=== PATIENT | female | born 1960 | race Caucasian/White ===

== ENCOUNTER 2017-12-07 07:30 | Inpatient (IN) ==
[~2017-12-07 07:30] MED LIST: ACETAMINOPHEN 500 MG TABLET PO ONE; FAMOTIDINE PB 20 MG/50 ML BAG IV ONE; LIDOCAINE 1% (10mg/ml) 2mL INJ PF SDV ID ONE; METOCLOPRAMIDE 10mg/2ml INJECTION IVP ONE; ONDANSETRON 4 MG/2 ML INJECTION IVP ONE; TRANEXAMIC ACID 1,000 MG in NS 100 ML IV ONE
[2017-12-07] MEDS ORDERED: EPINEPHrine PF 0.25 MG, BUPIVACAINE 0.25% PF 30 ML, KETOROLAC INJ 60 MG in NS 30 ML OPSITE ONE (08:00)
[2017-12-07 09:37] VITALS: BMI 38.9
[2017-12-07] MEDS ORDERED: CEFAZOLIN 1 G INJECTION IVP ONE (09:42)
[2017-12-07] MEDS ORDERED: SALINE FLUSH 10ml SYRINGE IV PRN (10:01)
[2017-12-07] MEDS: LR 1,000 ML IV SCH ×2 (10:30→12:36)
[2017-12-07] MEDS: NOZIN NASAL SWAB NAS SCH ×5 (10:36→21:01)
[2017-12-07] MEDS ORDERED: VANCOMYCIN 1,000 MG INJECTION ONE (10:50)
--- NOTE | 2017-12-07 10:55 | Anesthesia Preoperative Report ---
Anesthesia Preoperative Record - Date and Time Date: 12/07/17 Preoperative Diagnosis: LT TKA M17.12 Proposed Procedure: Left TKA NPO Since Date: 12/06/17 NPO Since Time: 23:15 Allergies/Adverse Reactions: Allergies Allergy/AdvReac Type Severity Reaction Status Date / Time codeine AdvReac Intermediate Mental Verified 12/07/17 09:57 Changes - Vital Signs Vital Signs: Temperature 98.4 F 12/07/17 09:35 Pulse Rate 67 12/07/17 09:35 Respiratory Rate 16 12/07/17 09:35 Blood Pressure 182/86 H 12/07/17 09:35 Pulse Oximetry 97 12/07/17 09:35 Height and Weight: Height 5 ft 6 in Weight 109.3 kg Body Mass Index 38.9 - Medications Inpatient Medications: Current Medications Epinephrine HCl 0.25 mg/Bupivacaine HCl 30 ml/Ketorolac Tromethamine 60 mg/ Sodium Chloride 62.25 mls @ 1 mls/hr OPSITE INTRAOP ONE PRN Reason: Protocol Stop: 12/09/17 22:14 Lactated Ringer's (Lactated Ringers) 1,000 mls @ 50 mls/hr IV .Q20H SABRINA Last Admin: 12/07/17 10:30 Dose: 50 mls/hr Sodium Chloride (Iv Flush) 10 - 80 ml IV PRN PRN PRN Reason: [place] Home Medications: Home Medications Medication Instructions Recorded Confirmed Type Cymbalta (duloxetine) 30 mg 60 mg PO DAILY 10/12/17 12/07/17 History capsule,delayed release Aspirin *EC* [Ecotrin] 1 - 2 tab PO DAILY PRN 11/30/17 12/07/17 History Gabapentin [Neurontin] 300 mg PO HS 11/30/17 12/07/17 History Metformin HCl [Metformin HCl ER] 500 mg PO BID 11/30/17 12/07/17 History Omeprazole Magnesium [Prilosec Otc] 20 mg PO DAILY 11/30/17 12/07/17 History Is Patient on Beta Chapito?: No - Medical History Respiratory: DENIES: Asthma, Bronchitis, Chronic Obstructive Pulmonary Disease (COPD), Dyspnea, Orthopnea, Pulmonary Embolism, Pneumonia, Upper Respiratory Infection, Pulmonary Edema, Sleep Apnea, Tuberculosis, Other Cardiovascular: DENIES: Abnormal EKG, Angina, Arrhythmia, Congestive Heart Failure, Coronary Artery Disease, Heart Murmur, Hypertension, Hypotension, High Cholesterol, Myocardial Infarction, Rheumatic Fever, Valvular Heart Disease, Other Gastrointestional: Reports: Gastroesophageal Reflux Disease (controlled with med ) DENIES: Obstructive Bowel, Hepatitis, Cirrhosis, Nausea or Vomiting Present, Gastrointestinal Bleeding, Hiatal Hernia, Ulcer, Morbid Obesity, Other Neuro/Musculoskeletal: Reports: Depression Denies: Back Problems, Cerebrovascular Accident, Headaches, Loss of Consciousness, Muscle Weakness, Neuromuscular Disorder, Paralysis, Paresthesia, Syncope, Seizures, Other Renal/Endocrine: Reports: Diabetes Mellitus Type 2 ("borderline"), Other (h/o hyperglycemia per h&p) DENIES: Diabetes Mellitus Type 1, Renal Failure, Dialysis, Thyroid Disease, Weight Loss, Weight Gain Other History: Reports: Cancer (cervical CA-LEEP procedure) DENIES: Anesthesia Reactions, Now, Blood Transfusions, Chemotherapy , Hemophilia, Malignant Hyperthermia, Sickle Cell Disease, Other - Surgical History GI Surgery/Treatments: Reports: Cholecystectomy Musculoskeletal Surgery/Tx: Reports: Orthopedic Surgery (right hip/femur fx w/ screws/plate ), Shoulder Arthroscopy (Rt RCR) Reproductive Surgery/Treatment: Reports: Cervical Procedure (LEEP), Tubal Ligation, Other (cervical LEEP) Anesthesia Reactions: None Hx Family Anesthesia Reaction: No History of Motion Sickness: No - Social History Smoking Status: Former smoker Hx Chewing Tobacco Use: No Second Hand Exposure: No Substance Use Type: does not use Alcohol Intake: current Alcohol Intake Frequency: holidays/special occasions only - Pertinent Findings Laboratory: CBC and BMP 12/07/17 09:55 BMP 12/07/17 09:55 Sodium 148 H Potassium 4.4 Chloride 107 Carbon Dioxide 27 BUN 18.0 H Creatinine 0.8 Glucose 113 H Calcium 9.9 EKG: Sinus Rhythm - Physical Exam Respiratory Exam: Present: lungs clear, bilateral breath sounds equal Cardiovascular Exam: Present: regular rate and rhythm, no murmur - Airway Assessment Mallampati Score: II TMD: 3 Fingerbreadths Neck Extension: good Overall Assessment: no airway concerns - ASA ASA Score: 2 - Plan Anesthesia: Neuroaxial Regional/Trunk Block: Spinal Peripheral Nerve Block: Saphenous-Left, Other (IPACK) - Discussion Discussion: Discussed risks/options/alternatives of anesthesia and questions answered. Patient consents. Nursing pain assessment noted. Present for Discussion: family member Attestation Statement: Prior to the delivery of any anesthetic medication, I examined the patient, developed the plan, obtained the patient's consent and discussed the risk and benefits of the procedure with the patient/guardian. - Additional Information Seen by Anesthesia: Yes
[2017-12-07] MEDS ORDERED: BUPIVACAINE 0.75%/DEXTROSE 8.5% SPINAL 2 ML AMPULE IJ ONE (11:14)
[2017-12-07] MEDS ORDERED: MIDAZOLAM 2mg/2ml INJECTION ONE (11:14)
[2017-12-07] MEDS ORDERED: LIDOCAINE 1% (10mg/ml) 30ml SDV INJ ONE (11:14)
[2017-12-07] MEDS ORDERED: FentaNYL 250 MCG/5 ML INJECTION ONE (11:14)
[2017-12-07] MEDS ORDERED: ANESTHESIA MIXTURE 50 ML IV ONE (11:15)
[2017-12-07] MEDS ORDERED: ROPIVACAINE 0.5% (5mg/ml) 30ml INJ ONE (11:35)
[2017-12-07] MEDS ORDERED: PROPOFOL 20 ML ONE (11:40)
[2017-12-07] MEDS ORDERED: VANCOMYCIN 1,000 MG INJECTION IAR ONE (11:51)
[2017-12-07] MEDS ORDERED: SALINE FLUSH 10ml SYRINGE ONE (11:54)
--- OUTSIDE RECORDS SUMMARY | 2017-12-07 11:54 | External Medical Summary | Summary of Care ---
:1960 Author Name Roosevelt Saunders D.O. Address [address] [place], [place] [id number] Care Team Providers Name Role Phone Roosevelt Saunders D.O. Unavailable Unavailable Frandy Bloom M.D. Unavailable Unavailable Frandy Bloom Unavailable Unavailable Unavailable Unavailable Unavailable Functional Status Functional Status Health Issues Name Dates Details Functional status health issues are not documented Status: Cognitive Status Health Issues Name Dates Details Cognitive status health issues are not documented Status: Problems Name Dates Details Neuropathy (355.9, G62.9) Status: Active Obesity (278.00, E66.9) Status: Active Constipation (564.00, K59.00) Status: Active Pain of right hip joint (719.45, M25.551) Status: Active Acute pain of left shoulder (719.41, M25.512) Status: Active Former tobacco use (V15.82, Z87.891) Status: Active Rotator cuff tendinitis, left (726.10, M75.82) Status: Active Cancer of cervix (180.9, C53.9) Status: Active Fatigue (780.79, R53.83) Status: Active Chronic pain of left knee (719.46, M25.562) Status: Active Hypercholesterolemia (272.0, E78.00) Status: Active Primary osteoarthritis of both knees (715.16, M17.0) Status: Active Primary osteoarthritis of left knee (715.16, M17.12) Status: Active Depression (311, F32.9) Status: Active Hyperglycemia (790.29, R73.9) Status: Active Hypertension (401.9, I10) Status: Active Restless leg syndrome (333.94, G25.81) Status: Active Injury of left foot, initial encounter (959.7, S99.922A) Status: Active Left foot pain (729.5, M79.672) Status: Active Contusion of left foot, initial encounter (924.20, S90.32XA) Status: Active Medications Name Dates Details Gabapentin 100 MG Oral Capsule TAKE 3 CAPSULES DAILY PRN. Quantity: 120 Refills: 6 Frandy Bloom M.D. Start : 19-Dec-2015 Active Cyclobenzaprine HCl - 10 MG Oral Tablet TAKE 1 TABLET 3 TIMES DAILY NEEDED. Quantity: 1 Refills: 2 Frandy Bloom M.D. Start : 14-Sep-2017 Active 30 Tablet Bottle DULoxetine HCl - 30 MG Oral Capsule Delayed Release Particles - TAKE one CAPSULE BY MOUTH EVERY DAY for a week then take two a day in am Quantity: 60 Refills: 11 Frandy Bloom M.D. Start : 14-Sep-2017 Active MetFORMIN HCl ER 500 MG Oral Tablet Extended Release 24 Hour one tablet twice a day Quantity: 60 Refills: 11 Frandy Bloom M.D. Start : 15-Oct-2017 Active Allergies and Adverse Reactions Name Dates Details Codeine Derivatives (Allergy) Status: Active Past Medical History Name Dates Details History of acute bronchitis (V12.69, Z87.09) Status: Resolved History of acute sinusitis (V12.69, Z87.09) Status: Resolved History of Ankle joint pain (719.47, M25.579) Status: Resolved History of Contusion of left foot, initial encounter (924.20, S90.32XA) Status: Resolved History of Foot pain (729.5, M79.673) Status: Resolved History of Foot pain, bilateral (729.5, M79.671) Status: Resolved History of Joint Pain In The Left Knee Status: Resolved Procedures Procedure Dates Details HEMOGLOBIN A1C 3507 Date: 15-Oct-2017 Comprehensive Metabolic Panel 1212 Date: 15-Oct-2017 History of Femur Repair Completed History of Shoulder Surgery Completed History of Cholecystectomy Laparoscopic Completed Immunization Name Dates Details Influenza on: 01-May-2010 Diphtheria-Tetanus Toxoids 6.7-5 LFU/0.5ML INJ on: 24-Oct-2013 Fluzone Quadrivalent Intramuscular Suspension on: 08-Aug-2015 Influenza (Nasal) on: 08-Jun-2016 Lot #: [id number] Fluzone Quadrivalent Intramuscular Suspension on: 16-Apr-2017 Lot #: [id number] Family History Grandfather Name Dates Details Family history of Diabetes Mellitus (V18.0) Status: Active Social History Name Dates Details - Status: Smoking Status Name Dates Details Current every day smoker Vital Signs Date Test Result Details [id number] BP Systolic 136 mm[Hg] Status: BP Diastolic 78 mm[Hg] Status: Height 66 in Status: Weight 248.6 lb Status: Body Mass Index Calculated 40.13 kg/m2 Status: Body Surface Area Calculated 2.19 m2 Status: Temperature 97.9 f Status: Heart Rate 83 /min Status: Respiration Rate 18 /min Status: O2 SAT 98 % Status: [id number] BP Systolic 132 mm[Hg] Status: BP Diastolic 86 mm[Hg] Status: Height 67 in Status: Weight 242 lb Status: Body Mass Index Calculated 37.9 kg/m2 Status: Body Surface Area Calculated 2.19 m2 Status: Temperature 98.6 f Status: Heart Rate 86 /min Status: Respiration Rate 18 /min Status: O2 SAT 98 % Status: Results Date Description Value Details [id number] Urinalysis, reflex to Micro and Comments: Testing performed by [facility], [address] [place] [address] Testing performed by [facility], [address] [place] [address] Culture ([facility]) 8016 pH 6.0 Range: 5.0-7.5 SP GRAVITY 1.025 Range: 1.010-1.030 APPEARANCE Clear Range: Clear COLOR Yellow Range: Straw-Yellow PROTEIN Negative mg/dL Range: Negative-Trace GLUCOSE Negative mg/dL Range: Negative KETONES Negative mg/dL Range: Negative BILIRUBIN Negative Range: Negative BLOOD Negative Range: Negative UROBIL 0.2 EU/dL Range: 0.2-1.0 NITRITE Negative Range: Negative LEUKOCYTES Negative Range: Negative [id number] ECG/ EKG Preop Electro CardioGram [facility] Test Date: [id number] Name: CISCO NAVA Department: Room: Gender: Female Science Manager: VRDOB: 1960 Requested By: Order Number: Reading MD: Bang Hanson MD MeasurementsIntervals Alvarado Rate: 76 P: 69PR: 168 QRS: -37QRSD: 122 T: 47QT: 390 QTc: 439 Interpretive StatementsSINUS RHYTHMMARKED LEFT AXIS DEVIATIONMODERATE INTRAVENTRICULAR CONDUCTION DELAYMODERATE VOLTAGE CRITERIA FOR LVH, CONSIDER NORMAL VARIANTReviewed by Electronically Signed On 11-24-2017 11:24:30 CDT by Bang Hanson MD [id number] Complete Blood Count ( CBC) w/ Auto Diff 7390 WBC Count 9.7 10*3/uL Range: 4.5-11.0 RBC Count 4.83 10*6/uL Range: 3.60-5.00 Hemoglobin 13.5 g/dL Range: 12.0-16.0 Hematocrit 42.2 % Range: 36.0-48.0 MCV 87.4 fL Range: 80.0-99.0 MCH 28.0 pg Range: 27.3-32.5 MCHC 32.0 % Range: 32.0-36.0 RDW-SD 44.7 fL Range: 36.4-46.3 RDW-CV 13.9 % Range: 11.0-15.0 Platelets 246 10*3/uL Range: 150-400 MPV 10.6 fL Range: 6.0-11.0 Neutrophil % 63.5 % Range: 37.0-80.0 Lymphocyte % 25.6 % Range: 13.0-50.0 Monocyte % 5.5 % Range: 0.0-12.0 Eosinophil % 4.2 % Range: 0.0-7.0 Basophil % 0.7 % Range: 0.0-3.0 Immature Granulocyte % 0.5 % Range: 0.0-1.0 Nucleated RBC % 0.0 % Range: 0.0-1.0 Neutrophil 6.14 10*3/uL Range: 2.00-6.90 Lymphocyte 2.48 10*3/uL Range: 0.60-3.40 Monocyte 0.53 10*3/uL Range: 0.00-0.90 Eosinophil 0.41 10*3/uL Range: 0.00-0.70 Basophil 0.07 10*3/uL Range: 0.00-0.20 Immature Granulocyte 0.05 10*3/uL Range: 0.00-0.10 Nucleated RBC 0.00 10*3/uL Range: 0.00-0.10 [id number] Comprehensive Metabolic Panel 1212 Comments: DOS 12/07/[address] SAY REYNOSO SODIUM 140 mmol/L Range: 133-144 POTASSIUM 3.4 mmol/L (Below low Range: 3.5-5.1 threshold) CHLORIDE 104 mmol/L Range: 98-110 CARBON DIOXIDE 26.7 mmol/L Range: 23.0-33.0 ANION GAP 9 mmol/L Range: 6-16 BUN 22 mg/dL (Above high Range: 7-18 threshold) CREATININE, SERUM 0.99 mg/dL Range: 0.55-1.02 BUN:CREATININE RATIO 22 EST GFR, >60 ml/min Range: >60 EST GFR, NON-AFR ANGOLAN 58 ml/min (Below low Range: >60 threshold) Comments: EST GFR is reported in ml/min per 1.73 m2 of body surface area. ----- GLUCOSE 195 mg/dL (Above high Range: 70-100 threshold) ALK PHOSPHATASE 87 U/L Range: 46-116 TOTAL BILIRUBIN 0.40 mg/dL Range: 0.20-1.00 AST 21 U/L Range: 8-35 ALT 37 U/L Range: 14-59 ALBUMIN 3.5 g/dL Range: 3.4-5.0 TOTAL PROTEIN 7.8 g/dL Range: 6.4-8.2 A/G RATIO 0.8 {units} (Below low Range: 1.0-1.8 threshold) CALCIUM 9.1 mg/dL Range: 8.5-10.1 [id number] XRay CHEST-PA & LAT Comments: Exam Date: 11/24/2017 10: 32Dictation Date: 11/24/2017 12:01 [facility] & [facility] Radiologic ReportCISCO [id number] (X-RAY)PATIENT OF DR. BLOOM BD: 1960 SECONDARY 11/24/17 X CHEST PA & LAT INDICATION: Z01.818: ENCOUNTER FOR OTHER PREPROCEDURAL EXAMINATIONCOMPARISON: NoneCHEST 2-VIEWS UPRIGHT (PA & LAT): The heart size is normal. The pulmonary vasculature is notengorged. The lungs are clear. No pleural effusion. No pneumonia, interstitial edema, orfailure.IMPRESSION: Negative chest. D/T Read: 11/24/2017 12:01Read By: WHIT ALCOCER MD D/T Signed: 11/24/2017 12:01Electronically Signed By: WHIT ALCOCER MD [id number] XRay FOOT-Left Comments: Exam Date: 12/03/2017 13: 11Dictation Date: 12/03/2017 13:40 X FOOT COMP (MIN 3V) [facility] Radiologic ReportCISCO NAVA I [id number] (X-RAY)PATIENT OF DR. SAUNDERS BD: 1960 SECONDARY DRRobina 12/03/17 X FOOT COMP (MIN 3V) LT OTHER REASON FOR TEST INDICATION: M79.672: PAIN IN LEFT FOOTS99.922A: UNSPECIFIED INJURY OF LEFT FOOT INITIAL AEYQGFMDZQ05.32XA: CONTUSION OF LEFT FOOT INITIAL ENCOUNTERLEFT FOOT 3-VIEWS SUPINE (AP, INTERNAL OBLIQUE & LAT): No fracture or dislocation. No acutebony abnormality. At least mild osteoarthritis of the midfoot, within the intertarsal bones. Heel spur. The subtalar joint is normal. The base of the fifth metatarsal is normal. D/T Read: 12/03/2017 13:40Read By: WHIT ALCOCER MD D/T Signed: 12/03/2017 13:40Electronically Signed By: WHIT ALCOCER MD Plan of Care Name Dates Details Planned Observations Planned Goals not documented Planned Encounters Appointment; Frandy Bloom M.D. On: 19-Apr-2018 9:15 Interventions Provided Labs/Procedures/ImagingXRay FOOT-Left; Done: 03 Dec 2017 Instructions Name Dates Details Instructions not documented Encounters Appointment; Jordyn Kincaid A.P.R.N. On: 04-Dec-2015 15:20 Encounter Diagnosis: Problem not documented Appointment; Frandy Bloom M.D. On: 02-Mar-2016 15:15 Encounter Diagnosis: Problem not documented Appointment; Jordyn Kincaid A.P.RNorma On: 08-Jun-2016 14:59 Encounter Diagnosis: Problem not documented Appointment; Kostas Cobb D.O. On: 09-Jul-2016 15:05 Encounter Diagnosis: Problem not documented Appointment; Frandy Bloom M.D. On: 27-Aug-2016 14:15 Encounter Diagnosis: Problem not documented Appointment; Frandy Bloom M.D. On: 07-Oct-2016 15:15 Encounter Diagnosis: Problem not documented Appointment; Frandy Bloom M.D. On: 19-Oct-2016 14:30 Encounter Diagnosis: Problem not documented Appointment; Say Anna M.D. On: 15-Dec-2016 8:30 Encounter Diagnosis: Problem not documented Appointment; Frandy Bloom M.D. On: 16-Apr-2017 6:30 Encounter Diagnosis: Problem not documented Appointment; Jordyn Kincaid A.P.R.N. On: 04-May-2017 15:19 Encounter Diagnosis: Problem not documented Appointment; Frandy Bloom M.D. On: 14-Sep-2017 9:30 Encounter Diagnosis: Problem not documented Appointment; Frandy Bloom M.D. On: 15-Oct-2017 9:45 Encounter Diagnosis: Problem not documented Appointment; Frandy Bloom M.D. On: 24-Nov-2017 10:15 Encounter Diagnosis: Problem not documented Appointment; Roosevelt Saunders D.O. On: 03-Dec-2017 12:25 Encounter Diagnosis: Problem not documented
--- NOTE | 2017-12-07 12:42 | Operative Note ---
- Procedure Preoperative Diagnosis: Left knee primary degenerative joint disease Postoperative Diagnosis: Same as preoperative diagnosis. Surgeon: Lyric Lozada MD Youth Development Professional: Alba Johnson Complications: None. Anesthesia: Spinal. Estimated Blood Loss: See Anesthesia Record. Fluids: Please see Anesthesia Record. Description of Procedure: Mrs. Nava and her left knee were identified and marked in the preoperative holding area. She was brought back to the operating suite. Spinal anesthetic was administered and she was placed supine on the operating table. The left lower extremity was prepped and draped in my normal sterile fashion. Timeout was performed. The Star[employer]reet[employer] robotic arm was used during the surgery. She had complete loss of cartilage in the far lateral aspect of the lateral femoral condyle. She also had large osteophytes parapatellar and grade 3 and 4 damage to the patella globally. She had grade 3 and 4 changes to the medial femoral condyle medially. A standard anterior midline incision followed by medial parapatellar arthrotomy was performed. Anterior fat pad and meniscus were removed. The patella was everted and a patella osteotomy was performed leaving 13 mm of bone. Tibial and femoral arrays and checkpoints were placed both within the original incision. The bone was then registered with the [employer]reet[employer] robot. Osteophytes were removed and gaps were captured both 90 and 0 degrees with correction. The femoral component was rotated externally 2 and the tibia both proximally 1 . The [employer]reet[employer] robotic arm was then used to assist with the bone cuts. Posterior osteophytes and remaining meniscus were removed. Trial components were placed. We used a 3 femur and a 3 tibia with a 9 mm spacer and a 29 patella. She tracked well and was well balanced throughout range of motion. The tibia was stamped at the proper rotation. Trial components fit well and bone quality was adequate so we proceeded with press-fit components. Components were press-fit into place. A final spacer was also placed. The knee was ranged one more time to ensure good stability, balance and patellar tracking. 1 g of vancomycin powder was then placed into the knee joint. The capsulotomy was then closed with #1 Vicryl. I then left my hearing aid assistant to close the subcutaneous tissue with 2-0 Vicryl and a running 0 V-lock. Running 4-0 Monoderm will be used in the subcuticular layer. Dermabond will be used on the skin. After drapes are removed patient will be taken to recovery room under the care of anesthesia.
--- NOTE | 2017-12-07 13:57 | Anesthesia Procedure Note ---
Peripheral Nerve Blockade - Procedure Physician: Compa Lozada MD Date: 12/07/17 Surgical Procedure: Left TKA Discussion: Discussed risks/options/alternatives of anesthesia and questions answered. Patient consents. Nursing pain assessment noted. Block Start: 13:43 Block Stop: 13:53 Blocked Employed: Adductor Canal, Other (IPACK , LEIDA) Indication: Post-Operative Pain Approach: Left Side Confirmed Position: Supine Patient: Consent, Risks/Benefits Discussed, Informed, Post Block Act. Discussed IV Sedation: No (Spainal intact) Sedation: Awake Initial Vital Signs: Temperature 98.4 F 12/07/17 09:35 Temperature Source Oral 12/07/17 09:35 Pulse Rate 67 12/07/17 09:35 Respiratory Rate 16 12/07/17 09:35 Blood Pressure 182/86 H 12/07/17 09:35 Blood Pressure Mean 118 12/07/17 09:35 Blood Pressure Position Sitting 12/07/17 09:35 Pulse Oximetry 97 12/07/17 09:35 Oxygen Delivery Method 12/07/17 09:35 Post Vital Signs: Temperature 97.3 F 12/07/17 13:30 Pulse Rate 60 12/07/17 13:40 Respiratory Rate 13 12/07/17 13:40 Blood Pressure 114/53 12/07/17 13:40 Pulse Oximetry 96 12/07/17 13:40 Initial Pain Pain Score: 0 Post Block Pain Score: 0 Prep: Chlorhexadine/ETOH, Sterile Technique Ultrasound Used?: Yes - Nerve Simulator Paresthesia/Pain: None - Injectate Ropivacaine (%): 0.5 Ropivacaine (mL): 25 Lidocaine (%): 1 Lidocaine (mL): 25 Was Epi 1:200,000 Used?: No Injection: Injection made incrementally with constant monitoring and aspiration every 5 ml
--- NOTE | 2017-12-07 13:58 | Anesthesia Postoperative Note ---
- Date and Time Date: 12/07/17 Time: 13:57 - Status Patient Participated in Evaluation: Patient Participated in Person Vital Signs: Temperature 97.3 F 12/07/17 13:30 Pulse Rate 60 12/07/17 13:40 Respiratory Rate 13 12/07/17 13:40 Blood Pressure 114/53 12/07/17 13:40 Pulse Oximetry 96 12/07/17 13:40 Respiratory Function: Airway Patent, Regular Respirations Cardiovascular Function: Regular Pulse EKG: Sinus Bradycardia Mental Status: Alert and Oriented Pain Intensity: 0 Hydration: IV Infusing Complications During Recover: None Apparent - Follow-Up Instructions Instructions: Per Surgeon
[2017-12-07] MEDS ORDERED: DiphenhydrAMINE 25 MG CAPSULE PO PRN (14:15)
[2017-12-07] MEDS ORDERED: NOZIN NASAL SWAB NAS ONE (14:15)
[2017-12-07] MEDS ORDERED: INSULIN ASPART 100unit/ml INJECTION SQ PRN (14:15)
[2017-12-07] MEDS ORDERED: LORazepam 1 MG TABLET PO PRN (14:15)
[2017-12-07] MEDS ORDERED: ONDANSETRON 4 MG/2 ML INJECTION IVP PRN (14:15)
[2017-12-07] MEDS ORDERED: DiphenhydrAMINE 50 MG/ML INJECTION IVP PRN (14:15)
--- NOTE | 2017-12-07 14:15 | XRay Report ---
Indication: postoperative image PROCEDURE: XR knee LT 2V: Encounter: Initial Comparison: None Findings: Postoperative changes of left total knee replacement are seen. There is expected postoperative subcutaneous gas. No evidence of hardware failure or acute fracture. No retained radiopaque surgical instruments or sponges. Overlying material causing artifact. Impression: New left total knee prosthesis without evidence of immediate complication. .
[2017-12-07] MEDS: NS 1,000 ML IV SCH (14:17)
[2017-12-07] MEDS: TRAMADOL 50 MG TABLET PO PRN ×2 (17:14→23:09)
[2017-12-07] MEDS: ACETAMINOPHEN 325 MG TABLET PO SCH ×2 (17:15→20:58)
[2017-12-07] MEDS ORDERED: HYDRALAZINE 20 MG/ML INJECTION IVP ONE (17:17)
[2017-12-07] MEDS: CEFAZOLIN 2 G in NS 100 ML IV SCH (19:09)
[2017-12-07] MEDS: DOCUSATE SODIUM 100 MG CAPSULE PO SCH (20:59)
[2017-12-07] MEDS: ASPIRIN *EC* 81 MG TABLET PO SCH (20:59)
[2017-12-07] MEDS ORDERED: GABAPENTIN 100 MG CAPSULE PO SCH (21:00)
[2017-12-07] MEDS ORDERED: SENNOSIDES 8.6 MG TABLET PO SCH (21:00)
[2017-12-08] MEDS: NS 1,000 ML IV SCH (03:07)
[2017-12-08] MEDS: CEFAZOLIN 2 G in NS 100 ML IV SCH (03:08)
[2017-12-08] MEDS: TRAMADOL 50 MG TABLET PO PRN (05:51)
[2017-12-08] MEDS: NOZIN NASAL SWAB NAS SCH ×2 (05:51→13:16)
[2017-12-08] MEDS ORDERED: OMEPRAZOLE 20 MG CAPSULE PO SCH (06:30)
[2017-12-08 07:26] VITALS: RESP 18
--- NOTE | 2017-12-08 08:01 | Orthopedic Progress Note ---
Date: Date: 12/08/17 Time: 756 Subjective/Severity of Illness: Mrs. Nava is up ambulating this morning with the walker. States the Tramadol takes the edge of the pain, has increased pain with ambulating. BP elevated last night SBP 160-170s. SBP 180s pre-operatively. Received hydralazine 5mg IV, improved this morning to SBP 140s. Not on home HTN meds. BG has been well controlled- 118 fasting.12.0 On metformin for hyperglycemia ( no DM diagnosis). Denies CP, SOA, nausea. Hgb 12.0 Orthopedic Exam Vital signs: Temperature 97.9 F 12/08/17 07:24 Pulse Rate 83 12/08/17 07:24 Respiratory Rate 18 12/08/17 07:24 Blood Pressure 134/70 12/08/17 07:24 Pulse Oximetry 97 12/08/17 07:24 - Constitutional General Appearance: Present: alert, orientated x3, cooperative, no acute distress - Respiratory Exam Present: non-labored - Cardiovascular Exam Present: pedal pulses intact - Extremities Exam Present: pulses intact. Absent: calf tenderness - Dressing Dressing: dry, intact, no drainage Comments: mepilex dressing Left knee - Integumentary Exam Present: pink, warm, dry - Neurological Exam Present: intact to light touch, no deficits - Psychiatric Exam Present: alert, oriented, normal affect - Labs Result Diagrams: 12/08/17 03:57 12/08/17 03:57 Abnormal lab results 12/07/17 12/08/17 Range/Units 09:55 03:57 Sodium 148 H (134-144) MEQ/L BUN 18.0 H (7-17) MG/DL Glucose 113 H 118 H (65-110) MG/DL Calculated Osmolality 287 H (261-280) MOSM/KG H & H 12/08/17 Range/Units 03:57 Hgb 12.0 (12-16) GM/DL Hct 38.0 (36-46) % Orthopedic Assessment and Plan (1) Primary osteoarthritis of left knee Status: Acute Assessment and Plan: Current anti-coagulation protocol with ASA 81mg BID for VTE prophylaxis. SCD's for added protection PT/OT services to improve independent function. Discharge Planning per Case Management. Hyperglycemia- will restart Metformin this morning. BG monitoring. Elevated BP- will continue to monitor, improved this morning. Encourage follow up within next week with PCP. - Anticoagulation Therapy Anticoagulation: ASA 81 mg PO BID x6 weeks - Additional Diagnoses Anemia: no intervention required, labs monitored Hospital Course Summary Disclaimer: The visit summary below is not to be considered part of the above Progress Note.
--- NOTE | 2017-12-08 08:21 | Discharge Summary ---
Orthopedic Discharge Info Date of admission: 12/07/17 09:13 Anticipated date of discharge: 12/08/17 Primary care physician: Frandy Bloom MD Attending Physician: Compa Lozada MD Consults: 12/07/17 09:41 Consult to Anesthesiology [CONS] Routine Reason For Exam: Preoperative Assessment 12/07/17 14:15 Case Management Consult [CONS] Routine Reason For Exam: Discharge Planning DME-Walker [CONS] Routine Height: 5 ft 6 in Weight: 109.3 kg Total Joint Outpatient Therapy [CONS] Routine Comment: Remove dressing in 2 weeks - Discharge Diagnosis (1) Primary osteoarthritis of left knee Status: Acute - Laboratory Result Diagrams: 12/08/17 03:57 12/08/17 03:57 Laboratory: Abnormal lab results 12/07/17 12/08/17 Range/Units 09:55 03:57 Sodium 148 H (134-144) MEQ/L BUN 18.0 H (7-17) MG/DL Glucose 113 H 118 H (65-110) MG/DL Calculated Osmolality 287 H (261-280) MOSM/KG H & H 12/08/17 Range/Units 03:57 Hgb 12.0 (12-16) GM/DL Hct 38.0 (36-46) % Orthopedic Discharge HPI - HPI Comments This patient was admitted for elective surgical tx of end stage degenerative joint disease that failed to respond to conservative treatment. Further details of this is found in the admission H&P. Orthopedic Hospital Course Hospital course: 12/08/17 08:17 After appropriate preoperative clearance and signing of operative consent, the patient was given IV antibiotics, according to orthopedic protocol. The patient was taken to the operating room and underwent elective left total knee arthroplasty. Following surgery, antibiotics were discontinued less than 24 hours according to joint protocol. Appropriate anticoagulants were initiated with ASA 81mg BID x 6 weeks and SCDs added for DVT prevention. The dressing was clean, dry, and intact. Pain control was obtained via multimodal approach. Bowel motivation addressed with scheduled and PRN medications. Early mobilization was initiated through PT services. Discharge arrangements made by a collaborative effort between the patient and Case Management. Pain control with Tramadol, patient did not tolerate Roxicodone, this made her nauseated. Anemia- hgb 12.0, no intervention required. Hyperglycemia- BG well controlled (113-142) Home metformin restarted Elevated BG- patient SBP elevated pre-operatively 180s, post-op SBP 140-170s. Hydralazine 5mg IV 1x dose given. Not on home medications. Patient to follow up with PCP in 1 week for medical follow up. Follow-up is scheduled in 2-3 weeks. Discharge instructions given by orthopedic providers and nursing staff at discharge. Discharge condition was good. 12/08/17 12:58 Care extended to > 2 midnight stays?: No Discharge Plan - Med Rec/Dispo Referrals/Follow Up: Alba Johnson APRN [Advanced Practice Nurse] - 12/29/17 2:15 pm Frandy Bloom MD [Primary Care Provider] - 1 Week [facility] Instructions: [facility] Postop Instructions Additional Instructions: [facility] [place] ON 12/10/2017 AT 2:30PM FOR PHYSICAL THERAPY EVAL. PHONE [phone] Prescriptions: New Aspirin *EC* [Ecotrin] 81 mg PO BID tablet Milk of Magnesia [Mom] 30 ml PO DAILY udc Ondansetron [Zofran Odt] 1 tab PO Q6HR #10 tab PEG 3350 17gm PACKET [Miralax] 17 gm PO DAILY packet Tramadol [Ultram] 50 - 100 mg PO Q6HR #60 tab Acetaminophen [Tylenol] 650 mg PO QID tablet Docusate Sodium [Colace] 100 mg PO BID capsule Continue Omeprazole Magnesium [Prilosec Otc] 20 mg PO DAILY Metformin HCl [Metformin HCl ER] 500 mg PO BID Gabapentin [Neurontin] 300 mg PO HS Aspirin *EC* [Ecotrin] 1 - 2 tab PO DAILY PRN PRN Reason: Pain Cymbalta (duloxetine) 30 mg capsule,delayed release 60 mg PO DAILY - Disposition 01 Discharged Home, Self-Care - Dismissal Complete Discharge Instructions are:: Complete
[2017-12-08] MEDS ORDERED: Oxycodone *IR* 5 MG TABLET PO PRN (08:27)
[2017-12-08] MEDS: ACETAMINOPHEN 325 MG TABLET PO SCH ×2 (08:48→13:16)
[2017-12-08] MEDS: DOCUSATE SODIUM 100 MG CAPSULE PO SCH (08:49)
[2017-12-08] MEDS: ASPIRIN *EC* 81 MG TABLET PO SCH (08:49)
[2017-12-08] MEDS ORDERED: DULOXETINE 60 MG CAPSULE PO SCH (09:00)
[2017-12-08] MEDS ORDERED: POLYETHYL GLYCOL 3350 17gm PACKET PO SCH (09:00)
[2017-12-08 13:00] VITALS: BP 139/78; PULSE 78; TEMP 97.3; O2SAT 95
[2017-12-08] MEDS ORDERED: TRAMADOL 50 MG TABLET PO PRN (13:04)
[2017-12-08] MEDS ORDERED: SENNOSIDES 8.6 MG TABLET PO PRN (13:06)
[2017-12-08] MEDS ORDERED: ONDANSETRON ODT 4 MG TABLET PO ONE (13:10)
[2017-12-09] MEDS ORDERED: BISACODYL 10 MG SUPPOSITORY RECTALLY SCH (20:00)
== END 2017-12-08 14:05 | disposition home or self-care (01) | DRG 470 ==
LOC: NMC.PERIOP 09:13 → SRG 14:05
PROVIDERS: ADMIT Orthopaedic Surgery; ATTEND Orthopaedic Surgery

== ENCOUNTER 2018-02-03 06:57 | Inpatient (IN) ==
[~2018-02-03 06:57] MED LIST changes: +MELOXICAM 15 MG TABLET PO ONE
[2018-02-03] MEDS ORDERED: TRANEXAMIC ACID 1,000 MG in NS 100 ML IV ONE (07:00)
[2018-02-03 07:09] VITALS: BMI 39.9
[2018-02-03] MEDS: LR 1,000 ML IV SCH ×2 (07:40→10:35)
[2018-02-03] MEDS: NOZIN NASAL SWAB NAS SCH ×5 (07:44→21:13)
[2018-02-03] MEDS ORDERED: EPINEPHrine PF 0.25 MG, BUPIVACAINE 0.25% PF 30 ML, KETOROLAC INJ 60 MG in NS 30 ML OPSITE ONE (08:00)
[2018-02-03] MEDS ORDERED: CEFAZOLIN 1 G INJECTION IVP ONE (09:00)
[2018-02-03] MEDS ORDERED: VANCOMYCIN 1,000 MG INJECTION ONE (09:01)
--- NOTE | 2018-02-03 09:41 | Anesthesia Preoperative Report ---
Anesthesia Preoperative Record - Date and Time Date: 02/03/18 Preoperative Diagnosis: Rt TKA M17.11 Proposed Procedure: Robot assist TKA NPO Since Date: 02/03/18 NPO Since Time: 05:00 Allergies/Adverse Reactions: Allergies Allergy/AdvReac Type Severity Reaction Status Date / Time codeine AdvReac Intermediate Mental Verified 02/03/18 07:21 Changes - Vital Signs Vital Signs: Temperature 99.0 F 02/03/18 07:06 Pulse Rate 66 02/03/18 08:35 Respiratory Rate 16 02/03/18 08:35 Blood Pressure 155/78 H 02/03/18 08:35 Pulse Oximetry 96 02/03/18 07:06 Height and Weight: Height 1.65 m Weight 108.9 kg Body Mass Index 39.9 - Medications Inpatient Medications: Current Medications Lactated Ringer's (Lactated Ringers) 1,000 mls @ 50 mls/hr IV .Q20H SABRINA Last Admin: 02/03/18 07:40 Dose: 50 mls/hr Isopropyl Alcohol (Nozin Nasal Swab) 1 each GRAHAM Q1M SABRINA Stop: 02/03/18 11:48 Last Admin: 02/03/18 07:51 Dose: 1 each Sodium Chloride (Iv Flush) 10 - 80 ml IV PRN PRN PRN Reason: Flushing Home Medications: Home Medications Medication Instructions Recorded Confirmed Type Cymbalta (duloxetine) 30 mg 60 mg PO DAILY 10/12/17 02/03/18 History capsule,delayed release Aspirin *EC* [Ecotrin] 1 - 2 tab PO DAILY PRN 11/30/17 02/03/18 History Gabapentin [Neurontin] 300 mg PO HS 11/30/17 02/03/18 History Omeprazole Magnesium [Prilosec Otc] 20 mg PO DAILY 11/30/17 02/03/18 History Acetaminophen [Tylenol] 650 mg PO QID PRN 01/25/18 02/03/18 History Tramadol [Ultram] 100 mg PO Q6HR PRN 01/25/18 02/03/18 History Losartan Potassium [Cozaar] 100 mg PO DAILY 01/27/18 02/03/18 History Is Patient on Beta Chapito?: No - Medical History Respiratory: Reports: Sleep Apnea DENIES: Asthma, Bronchitis, Chronic Obstructive Pulmonary Disease (COPD), Dyspnea, Orthopnea, Pulmonary Embolism, Pneumonia, Upper Respiratory Infection, Pulmonary Edema, Tuberculosis, Other Cardiovascular: Reports: Hypertension, High Cholesterol DENIES: Abnormal EKG, Angina, Arrhythmia, Congestive Heart Failure, Coronary Artery Disease, Heart Murmur, Hypotension, Myocardial Infarction, Rheumatic Fever, Valvular Heart Disease, Other Gastrointestional: Reports: Gastroesophageal Reflux Disease (controlled with med ), Morbid Obesity DENIES: Obstructive Bowel, Hepatitis, Cirrhosis, Gastrointestinal Bleeding, Hiatal Hernia, Ulcer Neuro/Musculoskeletal: Reports: Back Problems (DDD), Depression Denies: Cerebrovascular Accident, Headaches, Loss of Consciousness, Muscle Weakness, Neuromuscular Disorder, Paralysis, Paresthesia, Syncope, Seizures, Other Renal/Endocrine: Reports: Diabetes Mellitus Type 2 ("borderline"-not on med), Other (h/o hyperglycemia per h&p) DENIES: Diabetes Mellitus Type 1, Renal Failure, Dialysis, Thyroid Disease, Weight Loss, Weight Gain Other History: Reports: Cancer (cervical CA-LEEP procedure) DENIES: Anesthesia Reactions, Now, Blood Transfusions, Chemotherapy , Hemophilia, Malignant Hyperthermia, Sickle Cell Disease, Other - Surgical History GI Surgery/Treatments: Reports: Cholecystectomy Surgery/Treatment: DENIES: Dialysis Musculoskeletal Surgery/Tx: Reports: Orthopedic Surgery (right hip/femur fx w/ screws/plate ), Shoulder Arthroscopy (Rt RCR), Total Knee Replacement (Lt TKA -2017) Reproductive Surgery/Treatment: Reports: Cervical Procedure (LEEP), Tubal Ligation, Other (cervical LEEP) Anesthesia Reactions: None Hx Family Anesthesia Reaction: No History of Motion Sickness: No - Social History Smoking Status: Former smoker Hx Chewing Tobacco Use: No Second Hand Exposure: No Substance Use Type: does not use Alcohol Intake: current Alcohol Intake Frequency: holidays/special occasions only - Pertinent Findings Laboratory: CBC and BMP 02/03/18 07:25 BMP 02/03/18 07:25 Sodium 145 Potassium 3.9 Chloride 107 Carbon Dioxide 28 BUN 15.0 Creatinine 0.8 Glucose 114 H Calcium 9.4 EKG: Sinus Rhythm - Physical Exam Respiratory Exam: Present: lungs clear Cardiovascular Exam: Present: regular rate and rhythm, no murmur - Airway Assessment Mallampati Score: II TMD: 3 Fingerbreadths Neck Extension: good Teeth: chipped teeth/crowns Overall Assessment: no airway concerns - ASA ASA Score: 3 - Plan Anesthesia: Neuroaxial Regional/Trunk Block: Spinal Peripheral Nerve Block: Adductor Canal-Right - Discussion Discussion: Discussed risks/options/alternatives of anesthesia and questions answered. Patient consents. Nursing pain assessment noted. Attestation Statement: Prior to the delivery of any anesthetic medication, I examined the patient, developed the plan, obtained the patient's consent and discussed the risk and benefits of the procedure with the patient/guardian. - Additional Information Seen by Anesthesia: Yes
[2018-02-03] MEDS ORDERED: MIDAZOLAM 2mg/2ml INJECTION ONE (09:46)
[2018-02-03] MEDS ORDERED: PROPOFOL 500 MG/50 ML VIAL ONE ×2 (09:47→10:47)
[2018-02-03] MEDS ORDERED: BUPIVACAINE 0.75%/DEXTROSE 8.5% SPINAL 2 ML AMPULE IJ ONE (09:51)
[2018-02-03] MEDS ORDERED: LIDOCAINE 2% (100mg/5mL) 5ml PF SDV ONE (09:52)
[2018-02-03] MEDS ORDERED: PHENYLEPHRINE INJ 10 MG/ML VIAL IV ONE (10:26)
[2018-02-03] MEDS ORDERED: VANCOMYCIN 1,000 MG INJECTION IAR ONE (10:36)
[2018-02-03] MEDS ORDERED: VASOPRESSIN 20unit/ml INJECTION ONE (11:12)
[2018-02-03] MEDS ORDERED: PROPOFOL 20 ML ONE (11:25)
[2018-02-03] MEDS ORDERED: SALINE FLUSH 10ml SYRINGE IV PRN (11:33)
--- NOTE | 2018-02-03 11:43 | Operative Note ---
- Procedure Preoperative Diagnosis: Right knee primary degenerative joint disease Postoperative Diagnosis: Same as preoperative diagnosis. Surgeon: Lyric Lozada MD Assistant Head Cashier: Alba Johnson Complications: None. Anesthesia: Spinal. Estimated Blood Loss: See Anesthesia Record. Fluids: Please see Anesthesia Record. Description of Procedure: Mrs. Nava and her right knee were identified and marked in the preoperative holding area. She was brought back to the operating suite. Spinal anesthetic was administered and she was placed supine on the operating table. The right lower extremity was prepped and draped in my normal sterile fashion. Timeout was performed. The [employer] robotic arm was used during the surgery. She had previous femoral fracture with anterior plating. The plate was proximal enough not to interfere with our replacement. She had very large osteophyte superior to the patella which did appear to be articulating with the distal end of the plate. Her knee was 4 varus and flexion and 5 of valgus in extension. She had a slight flexion contracture. A standard anterior midline incision followed by medial parapatellar arthrotomy was performed. Anterior fat pad and meniscus were removed. The patella was everted and a patellar osteotomy was performed leaving 13 mm of bone. Tibial and femoral arrays and checkpoints were placed both within the original incision. The bone was then registered with the [employer] robot. Osteophytes were removed and gaps were captured both 90 and 0 with correction. The knee was balanced by placing 2 of external rotation on the femoral component. I balanced her with 17 mm in extension and a 10 mm in flexion. The [employer] robotic arm was then used to assist with the bone cuts. Posterior osteophytes and remaining meniscus were removed. Trial components were placed. We used a 3 femur and a 4 tibia with a 9 mm spacer and a 29 patella. She tracked well and was well balanced throughout range of motion. The tibia was stamped at the proper rotation. Trial components fit well and bone quality was adequate so we proceeded with press-fit components. Components were press-fit into place. A final spacer was also placed. The knee was ranged one more time to ensure good stability, balance and patellar tracking. 1 g of vancomycin powder was then placed into the knee joint. The capsulotomy was then closed with #1 Vicryl. I then left my fire assistant to close the subcutaneous tissue with 2-0 Vicryl and a running 0 V-lock. Running 4-0 Monocryl will be used in the subcuticular layer. After drapes are removed patient will be taken to recovery room under the care of anesthesia.
[2018-02-03] MEDS ORDERED: ROPIVACAINE 0.5% (5mg/ml) 30ml INJ ONE (11:48)
--- NOTE | 2018-02-03 11:58 | Anesthesia Procedure Note ---
Peripheral Nerve Blockade - Procedure Physician: Compa Lozada MD Date: 02/03/18 Surgical Procedure: TKA Discussion: Discussed risks/options/alternatives of anesthesia and questions answered. Patient consents. Nursing pain assessment noted. Block Start: 11:53 Block Stop: 11:56 Block Employed: Adductor Canal-Right Indication: Post-Operative Pain Approach: Right Side Confirmed Position: Supine Patient: Consent, Risks/Benefits Discussed, Informed, Post Block Act. Discussed IV Sedation: No Initial Vital Signs: Temperature 99.0 F 02/03/18 07:06 Temperature Source Oral 02/03/18 07:06 Pulse Rate 73 02/03/18 07:06 Respiratory Rate 15 02/03/18 07:06 Blood Pressure 180/100 H 02/03/18 07:06 Blood Pressure Mean 126 02/03/18 07:06 Blood Pressure Position Sitting 02/03/18 07:06 Pulse Oximetry 96 02/03/18 07:06 Oxygen Delivery Method 02/03/18 07:06 Post Vital Signs: Temperature 99.0 F 02/03/18 07:06 Pulse Rate 66 02/03/18 08:35 Respiratory Rate 16 02/03/18 08:35 Blood Pressure 155/78 H 02/03/18 08:35 Pulse Oximetry 96 02/03/18 07:06 Initial Pain Pain Score: 0 Post Block Pain Score: 0 Prep: Chlorhexadine/ETOH Ultrasound Used?: Yes - Injectate Ropivacaine (%): 0.5 Ropivacaine (mL): 20 Was Epi 1:200,000 Used?: No Injection: Injection made incrementally with constant monitoring and aspiration every ml
--- NOTE | 2018-02-03 12:25 | XRay Report ---
Indication: postoperative image PROCEDURE: XR knee RT 2V: Encounter: Initial Comparison: None Findings: Postoperative changes of right total knee replacement are seen. There is expected postoperative subcutaneous gas. No evidence of hardware failure or acute fracture. No retained radiopaque surgical instruments or sponges. Overlying material causing artifact. Distal femoral plate and screws. Impression: New right total knee prosthesis without evidence of immediate complication. .
--- NOTE | 2018-02-03 12:49 | Anesthesia Postoperative Note ---
- Date and Time Date: 02/03/18 Time: 12:29 - Status Patient Participated in Evaluation: Patient Participated in Person Vital Signs: Temperature 99.0 F 02/03/18 07:06 Pulse Rate 66 02/03/18 08:35 Respiratory Rate 16 02/03/18 08:35 Blood Pressure 155/78 H 02/03/18 08:35 Pulse Oximetry 96 02/03/18 07:06 Respiratory Function: Airway Patent EKG: Sinus Rhythm Mental Status: Alert and Oriented Pain Intensity: 0 Hydration: Taking PO Fluids Complications During Recover: None Apparent - Follow-Up Instructions Instructions: Per Surgeon
[2018-02-03] MEDS ORDERED: NOZIN NASAL SWAB NAS ONE (13:17)
[2018-02-03] MEDS ORDERED: DiphenhydrAMINE 50 MG/ML INJECTION IVP PRN (13:17)
[2018-02-03] MEDS ORDERED: LORazepam 1 MG TABLET PO PRN (13:17)
[2018-02-03] MEDS ORDERED: INSULIN ASPART 100unit/ml INJECTION SQ PRN (13:17)
[2018-02-03] MEDS ORDERED: ONDANSETRON 4 MG/2 ML INJECTION IVP PRN (13:17)
[2018-02-03] MEDS ORDERED: DiphenhydrAMINE 25 MG CAPSULE PO PRN (13:17)
[2018-02-03] MEDS: ACETAMINOPHEN 325 MG TABLET PO SCH ×3 (14:12→21:13)
[2018-02-03] MEDS: NS 1,000 ML IV SCH (14:13)
[2018-02-03] MEDS: TRAMADOL 50 MG TABLET PO PRN ×2 (14:26→21:11)
[2018-02-03] MEDS: NAPROXEN 220 MG TABLET PO SCH (18:08)
[2018-02-03] MEDS: CEFAZOLIN 2 G in NS 100 ML IV SCH (18:09)
[2018-02-03] MEDS ORDERED: GABAPENTIN 100 MG CAPSULE PO SCH (21:00)
[2018-02-03] MEDS ORDERED: SENNOSIDES 8.6 MG TABLET PO SCH (21:00)
[2018-02-03] MEDS: DOCUSATE SODIUM 100 MG CAPSULE PO SCH (21:12)
[2018-02-03] MEDS: ASPIRIN *EC* 81 MG TABLET PO SCH (21:13)
[2018-02-04] MEDS: CEFAZOLIN 2 G in NS 100 ML IV SCH (02:19)
[2018-02-04] MEDS: NS 1,000 ML IV SCH (03:46)
[2018-02-04] MEDS: TRAMADOL 50 MG TABLET PO PRN (03:46)
[2018-02-04] MEDS: NOZIN NASAL SWAB NAS SCH (05:54)
[2018-02-04] MEDS ORDERED: Oxycodone *IR* 5 MG TABLET PO PRN (08:04)
--- NOTE | 2018-02-04 08:08 | Orthopedic Progress Note ---
Date: Date: 02/04/18 Time: 803 Subjective/Severity of Illness: Mrs. Nava is lying in bed this morning. Reports she had difficulty sleeping last night due to pain and noise. Tramadol is not controlling pain as well as compared to left TKA. Reports 8/10 with ambulation, 3 at rest. Denies CP, SOA, nausea. Tolerating PO well. Hgb 11.4 Orthopedic Exam Vital signs: Temperature 97.6 F 02/04/18 07:50 Pulse Rate 85 02/04/18 07:50 Respiratory Rate 16 02/04/18 07:50 Blood Pressure 147/80 H 02/04/18 07:50 Pulse Oximetry 96 02/04/18 07:50 - Constitutional General Appearance: Present: alert, orientated x3, cooperative - Respiratory Exam Present: CTA bilaterally, non-labored - Cardiovascular Exam Present: Regular Rate/Rhythm, pedal pulses intact - Abdominal Exam Present: soft. Absent: tenderness, distended - Extremities Exam Present: pulses intact. Absent: calf tenderness - Dressing Dressing: dry, intact, no drainage - Integumentary Exam Present: pink, warm, dry - Neurological Exam Present: intact to light touch, no deficits - Psychiatric Exam Present: alert, oriented - Labs Result Diagrams: 02/04/18 03:58 02/04/18 03:58 Abnormal lab results 02/04/18 02/04/18 Range/Units 03:58 03:58 Hgb 11.4 L (12-16) GM/DL Hct 35.9 L (36-46) % Glucose 112 H (65-110) MG/DL H & H 02/04/18 Range/Units 03:58 Hgb 11.4 L (12-16) GM/DL Hct 35.9 L (36-46) % Orthopedic Assessment and Plan (1) Status post right knee replacement Status: Acute Assessment and Plan: Current anti-coagulation protocol with ASA 81mg BID for VTE prophylaxis. SCD's for added protection. Will switch Tramadol to Roxicodone prn for pain management. PT/OT services to improve independent function. Discharge Planning per Case Management. - Anticoagulation Therapy Anticoagulation: ASA 81 mg PO BID x6 weeks - Additional Diagnoses Diabetes: resume oral medications Anemia: no intervention required, patient was asymptomatic, labs monitored Hospital Course Summary Disclaimer: The visit summary below is not to be considered part of the above Progress Note.
[2018-02-04] MEDS: NAPROXEN 220 MG TABLET PO SCH (08:13)
[2018-02-04] MEDS: ACETAMINOPHEN 325 MG TABLET PO SCH ×2 (08:13→12:22)
[2018-02-04] MEDS: ASPIRIN *EC* 81 MG TABLET PO SCH (08:14)
[2018-02-04] MEDS: DOCUSATE SODIUM 100 MG CAPSULE PO SCH (08:14)
[2018-02-04] MEDS ORDERED: DULOXETINE 30 MG CAPSULE PO SCH (09:00)
[2018-02-04] MEDS ORDERED: POLYETHYL GLYCOL 3350 17gm PACKET PO SCH (09:00)
[2018-02-04] MEDS ORDERED: OMEPRAZOLE 20 MG CAPSULE PO SCH (09:00)
[2018-02-04] MEDS ORDERED: LOSARTAN 100 MG TABLET PO SCH (09:00)
[2018-02-04 10:42] VITALS: BP 122/65; PULSE 74; RESP 16; TEMP 97.3; O2SAT 93
[2018-02-04] MEDS ORDERED: SENNOSIDES 8.6 MG TABLET PO PRN (11:42)
--- NOTE | 2018-02-04 12:43 | Discharge Summary ---
Letter to PCP Cover Letter: Joyce Nava underwent an elective total joint arthroplasty by Dr. Lozada. Aspirin 81mg BID therapy was initiated for DVT prophylaxis. Aspirin should be given BID for six weeks postoperatively. Details for their hospitalization can be found in the discharge summary attached. The patient is scheduled to see you one week after surgery for a post-operative check. I hope you find the discharge summary informative and helpful as you resume care of your patient after their surgery. If our office can be of any assistance, please feel free to contact us any time. Orthopedic Discharge Info Date of admission: 02/03/18 06:57 Anticipated date of discharge: 02/04/18 Primary care physician: Frandy Bloom MD Attending Physician: Compa Lozada MD Consults: 02/03/18 07:03 Consult to Anesthesiology [CONS] Routine Reason For Exam: Preoperative Assessment 02/03/18 13:17 Case Management Consult [CONS] Routine Reason For Exam: Discharge Planning DME-Walker [CONS] Routine Height: 5 ft 5 in Weight: 108.9 kg Total Joint Outpatient Therapy [CONS] Routine Comment: Remove dressing in 2 weeks - Discharge Diagnosis (1) Status post right knee replacement Status: Acute - Procedures Procedures: Procedures Replacement of Left Knee Joint with Synthetic Substitute, Uncemented, Open Approach (12/07/17) Robotic Assisted Procedure of Lower Extremity, Open Approach (12/07/17) - Laboratory Result Diagrams: 02/04/18 03:58 02/04/18 03:58 Laboratory: Abnormal lab results 02/04/18 02/04/18 Range/Units 03:58 03:58 Hgb 11.4 L (12-16) GM/DL Hct 35.9 L (36-46) % Glucose 112 H (65-110) MG/DL H & H 02/04/18 Range/Units 03:58 Hgb 11.4 L (12-16) GM/DL Hct 35.9 L (36-46) % Orthopedic Discharge HPI - HPI Comments This patient was admitted for elective surgical tx of end stage degenerative joint disease that failed to respond to conservative treatment. Further details of this is found in the admission H&P. Orthopedic Hospital Course Hospital course: 02/04/18 12:40 After appropriate preoperative clearance and signing of operative consent, the patient was given IV antibiotics, according to orthopedic protocol. The patient was taken to the operating room and underwent elective joint arthroplasty. Following surgery, antibiotics were discontinued less than 24 hours according to joint protocol. Appropriate anticoagulants were initiated and SCDs added for DVT prevention. The dressing was clean, dry, and intact. Pain control was obtained via multimodal approach. Bowel motivation addressed with scheduled and PRN medications. Early mobilization was initiated through PT services. Discharge arrangements made by a collaborative effort between the patient and Case Management. Anemia- Hgb 12.0 , no acute intervention required. Patient tolerated Roxicodone 10mg q3hr prn for pain, improved pain controlled compared to Tramadol. Scheduled Tylenol and Aleve in addition to prn Roxicodone for pain control. Follow up with PCP in 1 week for medical check. Electrolytes and renal function remained stable throughout hospital stay. Follow-up is scheduled in 2-3 weeks. Discharge instructions given by orthopedic providers and nursing staff at discharge. Discharge condition was good. 02/04/18 12:42 Care extended to > 2 midnight stays?: No Discharge Plan - Med Rec/Dispo Referrals/Follow Up: Alba Johnson APRN [Advanced Practice Nurse] - 02/28/18 10:45 am Frandy Bloom MD [Primary Care Provider] - 02/11/18 1:15 pm [facility] Instructions: [facility] Postop Instructions Additional Instructions: [facility] [place] ON 02/07/2018 AT 11:15AM FOR PHYSICAL THERAPY [place]. PHONE [phone] Prescriptions: New Oxycodone *IR* [Roxicodone *Ir*] 5 - 10 mg PO Q3H PRN #50 tablet PRN Reason: Pain Acetaminophen [Tylenol] 650 mg PO QID tablet Aspirin *EC* [Ecotrin] 81 mg PO BID tablet Milk of Magnesia [Mom] 30 ml PO DAILY udc Naproxen [Aleve (Naproxen) 220 mg] 440 mg PO BIDWM tablet PEG 3350 17gm PACKET [Miralax] 17 gm PO DAILY packet Docusate Sodium [Colace] 100 mg PO BID capsule Continue Omeprazole Magnesium [Prilosec Otc] 20 mg PO DAILY Tramadol [Ultram] 100 mg PO Q6HR PRN PRN Reason: Pain Acetaminophen [Tylenol] 650 mg PO QID PRN PRN Reason: Pain Gabapentin [Neurontin] 300 mg PO HS Aspirin *EC* [Ecotrin] 1 - 2 tab PO DAILY PRN PRN Reason: Pain Losartan Potassium [Cozaar] 100 mg PO DAILY Cymbalta (duloxetine) 30 mg capsule,delayed release 60 mg PO DAILY - Disposition 01 Discharged Home, Self-Care - Dismissal Complete Discharge Instructions are:: Complete
[2018-02-05] MEDS ORDERED: BISACODYL 10 MG SUPPOSITORY RECTALLY SCH (20:00)
== END 2018-02-04 13:25 | disposition home or self-care (01) | DRG 470 ==
LOC: NMC.PERIOP 06:57 → SRG 12:39
PROVIDERS: ADMIT Orthopaedic Surgery; ATTEND Orthopaedic Surgery